=== PATIENT | male | born 1975 | race Caucasian/White ===

== ENCOUNTER 2019-10-13 18:57 | Emergency (ER) | payer MEDICAID ==
[2019-10-13] MEDS ORDERED: Sulfamethoxazole/Trimethoprim 800-160 MG Tab PO ONE (18:58)
--- NOTE | 2019-10-13 19:06 | EDM.PDOC ---
ED HPI GENERAL MEDICAL PROBLEM - General Chief Complaint: Genitourinary Problem Stated Complaint: RED SWOLLEN PENIS Time Seen by Provider: 10/13/19 19:00 Source of Information: Reports: Patient History Limitations: Reports: No Limitations - History of Present Illness INITIAL COMMENTS - FREE TEXT/NARRATIVE: States that he has had bloody urine since earlier today and he has pain in penis. Has noted head of penis is very painful and was red and he noted discharge from it yesterday. Has never had blood in urine before. has possible exposure to STD with new girlfriend. No fever or other symptoms. Has been trying to push fluids. 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, SH, FH ED ROS GENERAL - Review of Systems Review Of Systems: See Below Constitutional: Denies: Fever, Chills GI/Abdominal: Denies: Abdominal Pain : Reports: Discharge, Dysuria, Hematuria, Pain Musculoskeletal: Reports: No Symptoms Skin: Reports: No Symptoms ED EXAM, RENAL/ - Physical Exam Exam: See Below Exam Limited By: No Limitations General Appearance: Alert, WD/WN, Mild Distress Ears: Normal External Exam Nose: Normal Inspection Head: Atraumatic Neck: Normal Inspection Respiratory/Chest: No Respiratory Distress, Lungs Clear Cardiovascular: Regular Rate, Rhythm, No Edema GI/Abdominal: Normal Bowel Sounds, Soft, Non-Tender (Male) Exam: Circumcised, Urethral Discharge (mcmillan discharge from penis.), Other (head of penis is red and irritated. Shaft is normal. Testicles are normal.). No: Penile Lesions Extremities: Normal Inspection, No Pedal Edema Neurological: Alert, Oriented Skin Exam: Warm, Dry Course - Vital Signs Last Recorded V/S: Last Vital Signs Temp 99.2 F 10/13/19 18:58 Pulse 102 H 10/13/19 18:58 Resp 18 10/13/19 18:58 BP 148/97 H 10/13/19 18:58 Pulse Ox 98 10/13/19 18:58 - Orders/Labs/Meds Orders: Active Orders 24 hr Category Date Time Status CHLAMYDIA AND GONORRHEA BY TMA Stat Lab 10/13/19 19:15 Received Labs: Laboratory Tests 10/13/19 10/13/19 10/13/19 Range/Units 18:59 18:59 19:15 WBC 12.5 H (5.0-10.0) 10^3/uL RBC 4.68 (4.50-6.00) 10^6/uL Hgb 15.0 (14.0-18.0) g/dL Hct 43.4 (40.0-54.0) % MCV 92.7 (82.0-94.0) fL MCH 32.1 H (27.0-32.0) pg MCHC 34.6 (33.0-38.0) g/dL RDW Coeff of [place] 12.9 (11.0-15.0) % Plt Count 294 (150-400) 10^3/uL Neut % (Auto) 53.9 (35-85) % Lymph % (Auto) 32.7 (10-55) % [place] % (Auto) 8.6 (0-16) % Eos % (Auto) 4.2 (0-5) % Baso % (Auto) 0.6 (0-3) % Neut # (Auto) 6.72 (1.80-7.00) 10^3/uL Lymph # (Auto) 4.09 (1.00-4.80) 10^3/uL [place] # (Auto) 1.08 H (0.00-0.80) 10^3/uL Eos # (Auto) 0.53 H (0.00-0.45) 10^3/uL Baso # (Auto) 0.07 10^3/uL Sodium 139 (136-145) mEq/L Potassium 4.2 (3.5-5.0) mEq/L Chloride 101 (98-106) mEq/L Carbon Dioxide 28 (21-32) mmol/L BUN 12 (7-18) mg/dL Creatinine 1.2 (0.7-1.3) mg/dL Est Cr Clr Drug Dosing 81.96 mL/min Estimated GFR (MDRD) > 60 (>=60) mL/min Glucose 75 (75-99) mg/dL Calcium 9.4 (8.4-10.1) mg/dL Urine Color Yellow (YELLOW) Urine Appearance Slightly cloudy (CLEAR) Urine pH 7.5 (4.5-8.0) Ur Specific [place] 1.020 (1.003-1.020) Urine Protein Negative (NEGATIVE) mg/dL Urine Glucose (UA) Negative (NEGATIVE) mg/dL Urine Ketones Negative (NEGATIVE) mg/dL Urine Occult Blood Small H (NEGATIVE) Urine Nitrite Negative (NEGATIVE) Urine Bilirubin Negative (NEGATIVE) Urine Urobilinogen 0.2 (0.2-1.0) EU/dL Ur Leukocyte Esterase Large H (NEGATIVE) Urine RBC 5-10 H (0-5) /HPF Urine WBC 40-50 H (0-5) /HPF Ur Epithelial Cells Occasional H (NOT SEEN) /HPF Urine Bacteria Occasional H (NOT SEEN) /HPF Urinalysis Comment - Re-Assessments/Exams Free Text/Narrative Re-Assessment/Exam: 10/13/19 19:34 urine culture pending Due to the possible STI contact and the penile discharge will treat with 1 gm of zithromax at this time as the Chlamydia and GC are send out testing. Departure - Departure Time of Disposition: 19:35 Disposition: Home, Self-Care 01 Condition: Good Clinical Impression: UTI, Urinary tract infectious disease - Discharge Information *PRESCRIPTION DRUG MONITORING PROGRAM REVIEWED*: Not Applicable *COPY OF PRESCRIPTION DRUG MONITORING REPORT IN PATIENT ROEL: Not Applicable Instructions: Urinary Tract Infection, Adult Forms: ED Department Discharge Additional Instructions: push fluids as much as possible tylenol or advil as needed for pain bactri twice a day for 5 days. systems support officer prescription at your pharmacy. Will call you as soon as the results of the STD tests are back. Sepsis Event Note - Focused Exam Vital Signs: Vital Signs Temp Pulse Resp BP Pulse Ox 10/13/19 18:58 99.2 F 102 H 18 148/97 H 98 Date Exam was Performed: 10/13/19 Time Exam was Performed: 19:30 - Problem List & Annotations (1) UTI, Urinary tract infectious disease SNOMED Code(s): 02021938 Code(s): N39.0 - URINARY TRACT INFECTION, SITE NOT SPECIFIED Status: Acute Priority: High - Problem List Review Problem List Initiated/Reviewed/Updated: Yes - My Orders Last 24 Hours: My Active Orders 10/13/19 19:15 CHLAMYDIA AND GONORRHEA BY TMA Stat - Assessment/Plan Last 24 Hours: My Active Orders 10/13/19 19:15 CHLAMYDIA AND GONORRHEA BY TMA Stat
[2019-10-13 19:20] LABS: CHLORIDE,CL 101 mEq/L (98-106); SODIUM,NA 139 mEq/L (136-145)
[2019-10-13] MEDS ORDERED: Azithromycin 250 MG Tab PO ONE (19:30)
[2019-10-13] MEDS ORDERED: Take Home: Sulfamethoxazole/Trimethoprim 800-160 MG Tab, 2 Tab Pack PO ONE (19:33)
== END 2019-10-13 19:45 | disposition home or self-care (01) ==
LOC: CC.ED 18:57
DX: N39.0 Urinary tract infection, site not specified (principal); Z88.5 Allergy status to narcotic agent; Z79.899 Other long term (current) drug therapy
CPT/HCPCS: 36415; 80048; 81001; 85025; 87086; 87491; 87591; 99283; A9270-GY